=== PATIENT | female | born 1955 ===

== ENCOUNTER 2019-04-04 15:24 | Inpatient (IN) ==
[2019-04-04] MEDS ORDERED: cloNIDine 0.1 MG TABLET PO PRN (17:58)
[2019-04-04] MEDS ORDERED: DEXTROSE 10% 250 ML BAG IV PRN (18:00)
[2019-04-04] MEDS ORDERED: GLUCAGON 1 MG VIAL IM PRN (18:00)
[2019-04-04] MEDS ORDERED: FUROSEMIDE 40 MG/4 ML VIAL IV ONE (18:00)
[2019-04-04] MEDS ORDERED: ACETAMINOPHEN 325 MG TABLET PO PRN (18:01)
[2019-04-04] MEDS ORDERED: ONDANSETRON 4 MG/2 ML VIAL IV PRN (18:01)
[2019-04-04] MEDS: SODIUM CHLORIDE 0.9% 1,000 ML IV SCH (19:01)
[2019-04-04 19:06] LABS: Calcium 9.5 MG/DL (8.5-10.1); Osmolality,Calculated 275.7 MOS/KG (273-304)
[2019-04-04] MEDS: ALBUTEROL 2.5 MG/3 ML NEB RESP TX SCH (19:16)
[2019-04-04] MEDS: INSULIN LISPRO 100 UNIT/ML SUBCUT SCH (20:37)
[2019-04-04] MEDS: INSULIN GLARGINE 100 UNIT/ML SUBCUT SCH (22:32)
[2019-04-04] MEDS: ENOXAPARIN 30 MG/0.3 ML SYRINGE SUBCUT SCH (22:33)
[2019-04-05] MEDS: INSULIN LISPRO 100 UNIT/ML SUBCUT SCH ×6 (00:12→21:56)
[2019-04-05] MEDS: ALBUTEROL 2.5 MG/3 ML NEB RESP TX SCH ×3 (00:49→13:46)
[2019-04-05] MEDS: SODIUM CHLORIDE 0.9% 1,000 ML IV SCH (04:39)
[2019-04-05 05:52] LABS: Calcium 8.7 MG/DL (8.5-10.1); Osmolality,Calculated 283.5 MOS/KG (273-304)
[2019-04-05] MEDS: OMEGA 3 ACID ETHYL ESTERS 1 GM CAPSULE PO SCH (09:51)
[2019-04-05] MEDS: ATORVASTATIN 40 MG TABLET PO SCH (09:51)
[2019-04-05] MEDS: amLODIPine 10 MG TABLET PO SCH (09:51)
[2019-04-05] MEDS: ASPIRIN EC 81 MG TABLET PO SCH (09:51)
[2019-04-05] MEDS: PANTOPRAZOLE 40 MG TABLET PO SCH (09:52)
[2019-04-05] MEDS ORDERED: SODIUM POLYSTYRENE SULFATE 15 GM/60 ML BOTTLE PO ONE (17:36)
[2019-04-05] MEDS: SODIUM CHLORIDE 23.4% CONC INJ 38.5 MEQ, SODIUM BICARB INJ 100 MEQ in STERILE WATER INJ... IV SCH (18:47)
[2019-04-05] MEDS: INSULIN GLARGINE 100 UNIT/ML SUBCUT SCH (21:56)
[2019-04-05] MEDS: ENOXAPARIN 30 MG/0.3 ML SYRINGE SUBCUT SCH (21:56)
[2019-04-06] MEDS: INSULIN LISPRO 100 UNIT/ML SUBCUT SCH ×6 (00:28→20:05)
[2019-04-06 05:18] LABS: Calcium 8.2 MG/DL (8.5-10.1); Osmolality,Calculated 286.1 MOS/KG (273-304)
[2019-04-06] MEDS: SODIUM CHLORIDE 23.4% CONC INJ 38.5 MEQ, SODIUM BICARB INJ 100 MEQ in STERILE WATER INJ... IV SCH ×2 (06:09→17:08)
[2019-04-06] MEDS ORDERED: MAGNESIUM SULF RIDER 2 GM in PREMIX 1 EACH IV PRN (07:39)
[2019-04-06] MEDS ORDERED: MAGNESIUM SULF RIDER 4 GM in PREMIX 1 EACH IV PRN (07:39)
[2019-04-06] MEDS: ASPIRIN EC 81 MG TABLET PO SCH (08:54)
[2019-04-06] MEDS: PANTOPRAZOLE 40 MG TABLET PO SCH (08:54)
[2019-04-06] MEDS: ATORVASTATIN 40 MG TABLET PO SCH (08:54)
[2019-04-06] MEDS: OMEGA 3 ACID ETHYL ESTERS 1 GM CAPSULE PO SCH (08:54)
[2019-04-06] MEDS: amLODIPine 10 MG TABLET PO SCH (08:54)
[2019-04-06] MEDS: ENOXAPARIN 30 MG/0.3 ML SYRINGE SUBCUT SCH (20:06)
[2019-04-06] MEDS: INSULIN GLARGINE 100 UNIT/ML SUBCUT SCH (20:06)
[2019-04-07] MEDS: INSULIN LISPRO 100 UNIT/ML SUBCUT SCH ×3 (00:30→09:22)
[2019-04-07] MEDS: SODIUM CHLORIDE 23.4% CONC INJ 38.5 MEQ, SODIUM BICARB INJ 100 MEQ in STERILE WATER INJ... IV SCH (03:36)
[2019-04-07] MEDS: PANTOPRAZOLE 40 MG TABLET PO SCH (09:21)
[2019-04-07] MEDS: amLODIPine 10 MG TABLET PO SCH (09:21)
[2019-04-07] MEDS: ASPIRIN EC 81 MG TABLET PO SCH (09:21)
[2019-04-07] MEDS: OMEGA 3 ACID ETHYL ESTERS 1 GM CAPSULE PO SCH (09:21)
[2019-04-07] MEDS: ATORVASTATIN 40 MG TABLET PO SCH (09:21)
[2019-04-07 10:57] VITALS: BP 162/79
== END 2019-04-07 11:50 | disposition home or self-care (01) | DRG 641 ==
LOC: N.5E → SUATTDRO 17:42
PROVIDERS: ADMIT Internal Medicine; ATTEND Internal Medicine Cardiovascular Disease